=== PATIENT | female | born 1940 | race Caucasian/White ===

== ENCOUNTER 2021-05-17 03:28 | Outpatient (CLI) | payer OTHER, SELFPAY ==
[2021-05-17 07:26] LABS: Abs Immature Grans 0.03 10^3/uL (0.0-0.06); Absolute Basophil Count 0.06 10^3/uL (0.0-0.2); Absolute Eosinophil Count 0.11 10^3/uL (0.0-0.7); Absolute Monocyte Count 0.53 10^3/uL (0.1-0.8); Absolute Neutrophil Count 3.08 10^3/uL (1.2-6.7); Basophils % 1.1; Eosinophils % 2.1; HCT 43.8 % (36.0-46.0); HGB 13.8 g/dL (11.2-15.7); Immature Grans % 0.6; Lymphocytes % 28.2; MCH 27.7 pg (27.0-33.0); MCHC 31.5 % (32.0-36.0); MCV 87.8 fL (80-95); MPV 11.1 fL (8.0-11.0); Nucleated RBC 0 %; Platelet Count 294 10^3/uL (130-400); RBC 4.99 10^6/uL (3.93-5.22); RDW 13.7 % (11.7-14.6); WBC 5.31 10^3/uL (4.4-10.8)
[2021-05-17 07:42] LABS: Hemoglobin A1C 6.2 % (<5.7)
[2021-05-17 07:58] LABS: ALT 26 U/L (14-59); AST 17 U/L (15-37); Albumin 3.8 g/dL (3.4-5.0); Alkaline Phosphatase 84 U/L (46-116); Anion Gap 5.3 mmol/L (3-11); BUN 17 mg/dL (7-18); CO2 32.7 mmol/L (21.0-32.0); Calcium 8.9 mg/dL (8.5-10.1); Calculated LDL 72 mg/dL (<100); Chloride 105 mmol/L (98-107); Cholesterol 157 mg/dL (<200); Estimated GFR 53.35 (mL/min/1.73m2); Glucose 138 mg/dL (74-106); HDL Cholesterol 57 mg/dL (40-60); Potassium 4.1 mmol/L (3.5-5.1); Sodium 143 mmol/L (136-145); TSH 1.56 uIU/mL (0.36-3.74); Total Protein 6.9 g/dL (6.4-8.2); Triglyceride 141 mg/dL (<150)
[2021-05-17 08:18] LABS: COMMENT (LAB VIEW ONLY) 114.69 mg/dL; Microalb ug/mg Crea 10.4 ug/mg Cr
== END 2021-05-17 03:29 | disposition home or self-care (01) ==
LOC: LBO 03:28
DX: E03.9 Hypothyroidism, unspecified (principal); E11.9 Type 2 diabetes mellitus without complications
CPT/HCPCS: 36415; 80053; 80061; 82043; 82570; 83036; 84443; 85025

== ENCOUNTER 2022-07-30 12:17 | Outpatient (REF) | payer OTHER, SELFPAY ==
[2022-07-30 16:05] LABS: ALT 23 U/L (14-59); AST 20 U/L (15-37); Alkaline Phosphatase 95 U/L (46-116); Anion Gap 8.7 mmol/L (3-11); BUN 17 mg/dL (7-18); Bilirubin, Total 1.1 mg/dL (0.2-1.0); CO2 30.3 mmol/L (21.0-32.0); CREATININE 0.8 mg/dL (0.55-1.02); Calcium 9.3 mg/dL (8.5-10.1); Calculated LDL 84 mg/dL (<100); Chloride 102 mmol/L (98-107); Cholesterol 181 mg/dL (<200); Estimated GFR 73.52 (mL/min/1.73m2); Glucose 140 mg/dL (74-106); HDL Cholesterol 58 mg/dL (40-60); Potassium 3.8 mmol/L (3.5-5.1); Sodium 141 mmol/L (136-145); TSH 1.47 uIU/mL (0.36-3.74); Triglyceride 198 mg/dL (<150)
[2022-07-30 16:35] LABS: Hemoglobin A1C 6.6 % (<5.7)
== END 2022-07-30 12:18 | disposition home or self-care (01) ==
LOC: NCHCN 12:17
PROVIDERS: Visit Provider Physician Assistant Medical
DX: E11.36 Type 2 diabetes mellitus with diabetic cataract (principal); E78.5 Hyperlipidemia, unspecified; E03.9 Hypothyroidism, unspecified
CPT/HCPCS: 80053; 80061; 83036; 84443

== ENCOUNTER 2023-05-17 03:27 | Outpatient (CLI) | payer MEDICARE, SELFPAY ==
[2023-05-17 07:49] LABS: Hemoglobin A1C 6.8 % (<5.7)
[2023-05-17 08:27] LABS: ALT 23 U/L (14-59); AST 14 U/L (15-37); Albumin 3.7 g/dL (3.4-5.0); Alkaline Phosphatase 95 U/L (46-116); Anion Gap 9.3 mmol/L (3-11); BUN 15 mg/dL (7-18); CO2 29.7 mmol/L (21.0-32.0); CREATININE 0.9 mg/dL (0.55-1.02); Calculated LDL 49 mg/dL (<100); Chloride 102 mmol/L (98-107); Cholesterol 152 mg/dL (<200); Estimated GFR 63.83 (mL/min/1.73m2); Glucose 160 mg/dL (74-106); HDL Cholesterol 53 mg/dL (40-60); Potassium 3.4 mmol/L (3.5-5.1); Sodium 141 mmol/L (136-145); TSH 1.64 uIU/mL (0.36-3.74); Total Protein 7.2 g/dL (6.4-8.2); Triglyceride 250 mg/dL (<150)
== END 2023-05-17 03:28 | disposition home or self-care (01) ==
LOC: LBO 03:27
PROVIDERS: Visit Provider Physician Assistant Medical
DX: E11.36 Type 2 diabetes mellitus with diabetic cataract (principal); E03.9 Hypothyroidism, unspecified; E78.5 Hyperlipidemia, unspecified
CPT/HCPCS: 36415; 80053; 80061; 83036; 84443

== ENCOUNTER 2023-09-05 13:31 | Emergency (ER) | payer MEDICARE, SELFPAY ==
[2023-09-05 14:06] VITALS: BP 169/111; PULSE 82; RESP 16; TEMP 36.6; O2SAT 97
--- NOTE | 2023-09-05 14:15 | DI.RAD_ITS ---
Exam(s) XR KNEE LT 3V AP,LAT,ELISSA EXAM: XR KNEE LT 3V AP,LAT,ELISSA CLINICAL HISTORY: Pain. TECHNIQUE: 2D digital imaging was performed. Three views. COMPARISON: No exams were available for comparison FINDINGS: BONES: No acute fracture is present. No bony destructive lesion is seen. Enthesophyte at upper dheeraj e of the patella and tibial tubercle.. JOINTS: Joint spaces are maintained. Mild degenerative changes. The knee is normally aligned. A sma ll joint effusion is seen. SOFT TISSUE: Normal. IMPRESSION: Mild degenerative changes. No acute abnormality. DATA REPOSITORY: RADIATION DOSE DELIVERED:
--- NOTE | 2023-09-05 15:40 | W.ED.GENAD ---
HPI General Mode of arrival: wheelchair. Date/Time Provider Initiated Documentation: 09/05/23 14:18. Limitations to Documentation: no limitations. Information obtained by: patient, RN notes reviewed and old records reviewed. HPI Narrative: 83 year old female presents with left knee pain and feeling as ifit is giving out. Occurred twice this week. Patient fell onto her bottom. Increased pain with weight bearing. Took ibuprofen [employer]. PMhx HTN, High Cholesterol, No other complaints or associated symptoms. Related Data Home Medications Medication Instructions Recorded Confirmed fluoxetine 20 mg capsule 20 mg PO DAILY 05/22/22 09/05/23 hydrochlorothiazide 12.5 mg tablet 12.5 mg PO DAILY 05/22/22 09/05/23 levothyroxine 100 mcg tablet 100 mcg PO DAILY 05/22/22 09/05/23 (Synthroid) lovastatin 40 mg tablet 40 mg PO DAILY 05/22/22 09/05/23 metoprolol succinate 25 mg 25 mg PO DAILY 05/22/22 09/05/23 tablet,extended release 24 hr Allergies Allergy/AdvReac Type Severity Reaction Status Date / Time No Known Allergies Allergy Verified 09/05/23 14:04 General Stated Complaint: Orthopedic DARRELL: 4 Review of Systems Musculoskeletal Musculoskeletal: Reports as per HPI, Reports abnormal gait, Denies deformity, Reports arthralgias, Reports muscle weakness (Left knee) and Reports stiffness Neurologic Neurologic: Reports abnormal gait Exam Const General: cooperative, healthy appearing and comfortable Nutritional Appearance: well nourished Orientation: alert, awake and oriented x3 Limitations: physical limitations (Hard of hearing) Extrem Right lower extremity: normal to inspection Left lower extremity: normal to inspection, full ROM, normal capillary refill and knee Details: tenderness Location: of the medial joint line and knee ligament exam normal; no swelling and no unusual warmth Course Vital Signs Vital signs: Vital Signs Temperature 36.6 C 09/05/23 14:06 Pulse 82 09/05/23 14:06 Respiratory Rate 16 09/05/23 14:06 Blood Pressure 169/111 H 09/05/23 14:06 Pulse Oximetry 97 09/05/23 14:06 Temperature 36.6 C 09/05/23 14:06 Temperature Source Temporal Artery Scan 09/05/23 14:06 Pulse 82 09/05/23 14:06 Respiratory Rate 16 09/05/23 14:06 Respiratory Effort Normal, Non-Labored 09/05/23 14:09 Blood Pressure 169/111 H 09/05/23 14:06 Blood Pressure Position Sitting 09/05/23 14:06 Pulse Oximetry 97 09/05/23 14:06 Oxygen Delivery Method Room Air 09/05/23 14:06 Oxygen Flow Rate 0 09/05/23 14:06 Pain Level 7 09/05/23 14:06 Medical Decision Making 83 year old female presents with left knee pain and feeling as ifit is giving out. Occurred twice this week. Patient fell onto her bottom. Increased pain with weight bearing. Took ibuprofen [employer]. PMhx HTN, High Cholesterol, No other complaints or associated symptoms. XR left knee 3 view ordered. Shows degenerative changes. PE demonstrates stable knee joint. No effusion, no deformity. Distal CMS intact. Patient placed in a hinged knee brace and instructed on RICE procedures. Ambulatory in department prior to discharge. Quality:SDOH Health Related Social Needs: No Data to Display PFSH All Active Problems (Updated 09/05/23 @ 15:41 by Viviane Fischer NP) Left knee sprain (Acute) Nail dystrophy (Acute) Hypothyroid (Chronic) Dyslipidemia (Acute) Hypertension (Chronic) Social History (Updated 05/22/22 @ 21:25 by Sisi Dexter RN) Smoking/Tobacco Use Status: Never Smoking risk assessment performed?: Yes Alcohol Intake: current Alcohol Intake frequency: holidays/special occasions only Drug use: Never Substance use type: does not use Household members: none Housing: house Number of Children: 3 What is your relationship status?: Panel score (0-1 are the most socially isolated patients): 0 Do you feel safe at home: Yes Do you feel safe in your relationship?: Yes Discharge Plan Disposition Patient Disposition: Home Condition: Stable Discharge Details Clinical Impression: Left knee sprain Primary Care Provider: Unknown,Unknown ED Provider: Viviane Fischer Home Meds and New Rx's Prescriptions: Continued levothyroxine [Synthroid] 100 mcg tablet 100 mcg PO DAILY fluoxetine 20 mg capsule 20 mg PO DAILY metoprolol succinate 25 mg tablet extended release 24 hr 25 mg PO DAILY hydrochlorothiazide 12.5 mg tablet 12.5 mg PO DAILY lovastatin 40 mg tablet 40 mg PO DAILY Discharge Instructions Instructions: Knee Sprain (ED) Additional Instructions: Wear the knee brace as needed for comfort. Weight bearing advance as tolerated. Rest, Ice Compression elevation when sitting or lying down. Take tylenol or ibuprofen every 4-6 hours as needed for pain and swelling. Follow up with PCP or orthopedics in 1-2 weeks if continued symptoms. Referrals: Rick Tan PA [[facility]] - Return if symptoms worsen
== END 2023-09-05 15:51 | disposition home or self-care (01) ==
PROVIDERS: Emergency Provider Registered Nurse Emergency
DX: S83.92XA Sprain of unspecified site of left knee, initial encounter (principal); I10 Essential (primary) hypertension; E78.00 Pure hypercholesterolemia, unspecified; W18.30XA Fall on same level, unspecified, initial encounter
CPT/HCPCS: 73562; 99283

== ENCOUNTER → 2023-10-02 08:14 | Outpatient (BNVA) | payer MEDICARE, SELFPAY | PROVIDERS: PCP Physician Assistant Medical; Referring Provider Physician Assistant Medical | DX: M17.12 Unilateral primary osteoarthritis, left knee (principal) | CPT/HCPCS: 20610; 99213; J1030 ==

== ENCOUNTER 2023-10-15 11:36 | Outpatient (REF) | payer MEDICARE, SELFPAY ==
[2023-10-15 15:42] LABS: Anion Gap 7.6 mmol/L (3-11); BUN 17 mg/dL (7-18); CO2 30.4 mmol/L (21.0-32.0); CREATININE 0.9 mg/dL (0.55-1.02); Calcium 9.2 mg/dL (8.5-10.1); Chloride 105 mmol/L (98-107); Estimated GFR 63.43 (mL/min/1.73m2); Glucose 146 mg/dL (74-106); Potassium 3.6 mmol/L (3.5-5.1); Sodium 143 mmol/L (136-145)
[2023-10-15 17:08] LABS: COMMENT (LAB VIEW ONLY) 152.52 mg/dL; Microalb ug/mg Crea 13.3 ug/mg Cr
[2023-10-15 17:10] LABS: Hemoglobin A1C 6.9 % (<5.7)
== END 2023-10-15 11:37 | disposition home or self-care (01) ==
LOC: NCHCN 11:36
PROVIDERS: PCP Physician Assistant Medical; Referring Provider Physician Assistant Medical; Visit Provider Physician Assistant Medical
DX: I10 Essential (primary) hypertension (principal); E11.9 Type 2 diabetes mellitus without complications
CPT/HCPCS: 80048; 82043; 82570; 83036